=== PATIENT | female | born 1945 | race Caucasian/White ===

== ENCOUNTER → 2016-07-16 | Outpatient (CLI) | payer MEDICARE, OTHER ==
[~2016-07-16] MED LIST: ACTIGALL300 M1 PO; ASCORBIC ACID500 MG PO; ASPIRIN (CHILDR81 MG PO; ASPIRIN325 MG PO; CALCIUM CARBON600 MG PO; COZAAR100 MG PO; LEVEMIR FL100 UNIT/1 SUB-Q; LEVOTHROID (S150 MCG PO; NEURONTIN400 MG PO; NORVASC10 MG PO; PHENOBARB60 MG PO; PHENOBARBITAL30 MG PO; PROTONIX40 MG PO; THERA-VITE W/ B1 TAB PO; VITAMIN D1000 UNI1 PO
[2016-07-16 17:46] LABS: ANION GAP 12.3 (10.0-19.0); BLOOD UREA NITROGEN 20 mg/dL (6-24); CALCIUM 9.1 mg/dL (8.5-10.5); CHLORIDE 105 mMol/L (96-110); CO2 26 mMol/L (22-32); CREATININE 0.9 mg/dL (0.5-1.1); ESTIMATED GFR (MDRD EQUATION) > 60; POTASSIUM 4.3 mMol/L (3.7-5.1); SODIUM 139 mMol/L (135-145)
== END | disposition disaster alternative care site (69) ==
LOC: LNHI 16:45
PROVIDERS: Internal Medicine Cardiovascular Disease
DX: I50.32 Chronic diastolic (congestive) heart failure (principal)

== ENCOUNTER 2016-12-19 20:25 | Emergency (ER) | payer BC, MEDICARE, OTHER ==
--- NOTE | ~2016-12-19 | ER ---
PATIENT'S NAME: JULITO MELENDEZ [facility] AGE: 71 Y [address] ROOM: [place] [address] LOCATION: [facility] ADMIT DATE: 12/19/2016 ER/Outpatient Report DISCHARGE DATE: 12/19/2016 FAMILY PHYSICIAN: Nikita Burgos MD ATTENDING PHYSICIAN: Dawson Jarrell Admission date and time documented on the medical record. I saw the patient at 2045 hours. CHIEF COMPLAINT: Left mid foot pain. HISTORY OF PRESENT ILLNESS: The patient is a 71-year-old female, who presents with left mid foot pain over the past 24 to 48 hours. No known injury or fall. Nothing was dropped on her foot. No previous injuries to this foot. Mainly has some mid foot right over the second and third metatarsals. No open wounds. She has some mild swelling. There is some ecchymosis. Achilles tendon is intact. Range of motion intact. No recent colds, coughs, flus, fever, chills, or sweats. No known arthritides or gout. HOME MEDICATIONS: See attached medication list. ALLERGIES: SULFA, BENADRYL. SOCIAL HISTORY: Nonsmoker, nondrinker. 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 OPERATIONS: Colonoscopy with polypectomy, ERCP, left elbow surgery, appendectomy, hysterectomy, cystoscopy, cervical neck diskectomy with fusion, bilateral carpal tunnel release. REVIEW OF SYSTEMS: All systems reviewed by me are negative with the exception of those discussed in the history of present illness. PHYSICAL EXAMINATION: PATIENT'S NAME: JULITO MELENDEZ [facility] AGE: 71 Y [address] ROOM: [place], [place] [address] LOCATION: [facility] ADMIT DATE: 12/19/2016 ER/Outpatient Report DISCHARGE DATE: 12/19/2016 FAMILY PHYSICIAN: Nikita Burgos MD ATTENDING PHYSICIAN: Dawson Jarrell VITAL SIGNS: Temperature 98, pulse 68, respirations 16, blood pressure 202/81, O2 saturation on room air is 98%. EXTREMITIES: On examination of the left foot, there is some ecchymosis, mild swelling and tenderness over the mid proximal second and third metatarsal bones. No deformity. Ankles intact without swelling or deformity. Achilles tendon is intact. Neurovascularly intact. Pulses are palpable. Rest of the legs intact. LABORATORY DATA AND X-RAYS: X-ray of the left foot shows no fracture or dislocation. We will review x-ray with the radiologist. Laboratory: Uric acid was normal at 4.4, CMS was normal except an elevated glucose 266, elevated creatinine 1.2, low GFR of 46. Alkaline phosphatase was 434, AST was 54. CRP was normal at 0.89. White count 6300, 66 segs, 21 lymphs, 8 monos, 5 eos. Hemoglobin was 11.3 with hematocrit 33.3, platelet count was 139,000. IMPRESSION: Pain, left mid foot with mild swelling and bruising, etiology undetermined at this time. Need to consider a stress fracture. PLAN: The patient was placed in a CAM walking boot. Crutches as needed. Ice and elevation intermittently as needed. Aleve 2 orally 2 times a day with food times 7 to 14 days. Continue present home medications and care. Follow up with personal physician in 7 to 14 days or sooner if needed for followup exam. May need to have an MRI if does not get better. Discussion ensued with the patient concerning my findings and recommendations, she understands. MD MARIN SANCHEZ/modl /[id number] d: 12/20/16 0202 t: 12/20/16 1820, OUTPATIENT REPORT
[2016-12-19 20:59] LABS: BASOPHIL % 0.2 %; EOSINOPHIL # 0.3 K/uL (0.0-0.5); EOSINOPHIL % 5.2 %; HEMATOCRIT 33.3 % (33.0-46.0); HEMOGLOBIN 11.3 g/dL (10.0-15.0); IMMATURE GRANULOCYTE % 0.2 %; LYMPHOCYTE # 1.3 K/uL (0.8-4.0); LYMPHOCYTE % 20.6 %; MCH 30.6 pg (27.0-34.0); MCHC 33.9 gm/dL (32.0-36.5); MCV 90.2 fl (83.0-98.0); MONOCYTE # 0.5 K/uL (0.0-1.0); MONOCYTE % 8.1 %; MPV 10.6 fl (9.4-12.4); NEUTROPHIL # (ANC) 4.1 K/uL (1.8-7.8); NEUTROPHIL % 65.7 %; NRBC % 0 /100WBC (0-0.00); PLATELET COUNT 139 K/uL (150-450); RBC 3.69 M/uL (3.50-5.50); RDW-CV 12.6 % (11.9-14.6); WBC 6.3 K/uL (4.0-11.0)
[2016-12-19 21:15] LABS: ALBUMIN 3.3 gm/dL (3.5-5.0); ANION GAP 8.8 (10.0-19.0); CALCIUM 9.1 mg/dL (8.5-10.5); CREATININE 1.2 mg/dL (0.5-1.1); POTASSIUM 3.8 mMol/L (3.7-5.1); TOTAL BILIRUBIN 0.4 mg/dL (0.0-1.5); TOTAL PROTEIN 7.3 g/dL (6.0-8.4)
== END 2016-12-19 21:46 | disposition disaster alternative care site (69) ==
LOC: GACC 20:25
PROVIDERS: Emergency Medicine
DX: S90.32XA Contusion of left foot, initial encounter (principal); E10.42 Type 1 diabetes mellitus with diabetic polyneuropathy; I10 Essential (primary) hypertension; E78.5 Hyperlipidemia, unspecified; E03.9 Hypothyroidism, unspecified; K76.9 Liver disease, unspecified; C67.9 Malignant neoplasm of bladder, unspecified; K63.5 Polyp of colon; Z96.41 Presence of insulin pump (external) (internal); Z88.2 Allergy status to sulfonamides; Z88.8 Allergy status to other drugs, medicaments and biological substances; Z98.890 Other specified postprocedural states; Z98.1 Arthrodesis status; X58.XXXA Exposure to other specified factors, initial encounter

== ENCOUNTER → 2016-12-31 | Outpatient (CLI) | payer BC, MEDICARE, OTHER | END | disposition disaster alternative care site (69) | LOC: GRAD 09:56 → GBCOE 13:00 | DX: Z12.31 Encounter for screening mammogram for malignant neoplasm of breast (principal); K74.60 Unspecified cirrhosis of liver | CPT/HCPCS: G0202 ==